=== PATIENT | female | born 1995 | race African-American/Black ===

== ENCOUNTER 2018-06-08 19:12 | Emergency (ER) | payer OTHER ==
[~2018-06-08] VITALS: Ht 152.4 cm; Wt 59.0 kg
[~2018-06-08 19:12] MED LIST: PRENATAL PO
[2018-06-08] MEDS ORDERED: NORCO 5-325 TA1 EACH PO (20:26)
[2018-06-08] MEDS ORDERED: CYCLOBENZAPRINE5 MG PO (20:26)
[2018-06-08] MEDS ORDERED: SENNA-DOCUSATE1 EACH PO (20:26)
[2018-06-08] MEDS ORDERED: NAPROSYN500 MG PO (20:26)
[2018-06-08 21:05] VITALS: BP 115/79
== END 2018-06-08 21:05 | disposition home or self-care (01) ==
LOC: ER 19:12
DX: S00.83XA Contusion of other part of head, initial encounter (principal); S60.212A Contusion of left wrist, initial encounter; S60.211A Contusion of right wrist, initial encounter; S09.90XA Unspecified injury of head, initial encounter; Y04.8XXA Assault by other bodily force, initial encounter; Y93.89 Activity, other specified; Y92.89 Other specified places as the place of occurrence of the external cause; Y99.8 Other external cause status

== ENCOUNTER 2019-11-23 19:38 | Emergency (ER) | payer OTHER ==
[~2019-11-23] VITALS: Ht 152.4 cm; Wt 63.5 kg
[~2019-11-23 19:38] MED LIST changes: +CYCLOBENZAPRINE5 MG PO; +NAPROSYN500 MG PO; +NORCO 5-325 TA1 EACH PO; +SENNA-DOCUSATE1 EACH PO
[2019-11-23 20:03] LABS: URINE BILIRUBIN NEGATIVE (Negative); URINE BLOOD NEGATIVE (Negative); URINE CLARITY CLEAR; URINE COLOR YELLOW; URINE GLUCOSE-RANDOM* NEGATIVE (Negative); URINE KETONES NEGATIVE (Negative); URINE LEUKOCYTES-REFLEX NEGATIVE (Negative); URINE NITRITE-REFLEX NEGATIVE (Negative); URINE PROTEIN (DIPSTICK) NEGATIVE (Negative); URINE SPECIFIC GRAVITY 1.025 (1.005-1.035); URINE UROBILINOGEN 0.2 E.U./dl (0.2-1.0)
[2019-11-23 21:36] LABS: HEMATOCRIT 38.2 % (37.0-47.0); HEMOGLOBIN 12.6 gm/dL (12.0-15.0); MCH 29.4 pg (26.0-34.0); MCHC 32.9 g/dL (28.0-37.0); MCV 89.3 fL (80.0-100.0); RBC 4.28 mil/uL (4.20-5.00); RDW 13.6 % (10.5-14.5); WBC 11.2 thou/uL (4.0-11.0)
[2019-11-23 21:47] LABS: CREATININE 1.1 mg/dL (0.6-1.0); POTASSIUM 3.6 mmol/L (3.5-5.1)
[2019-11-23] MEDS ORDERED: NORCO 5-325 TA1 EAC1 PO (23:57)
[2019-11-24 00:34] VITALS: BP 103/52
== END 2019-11-24 00:35 | disposition home or self-care (01) ==
LOC: ER 19:38
PROVIDERS: Emergency Medicine Emergency Medical Services
DX: R10.2 Pelvic and perineal pain (principal)